=== PATIENT | female | born 1955 | race American Indian/Alaskan Native ===

== ENCOUNTER 2020-12-17 07:40 | Emergency (ER) | payer SELFPAY ==
[2020-12-17 08:14] VITALS: BP 176/96
--- NOTE | 2020-12-17 08:22 | Emergency Department Report ---
Chief Complaint: Extremity Injury, Lower Stated Complaint: LT KNEE AND FOOT PAIN Time Seen by Provider: 12/17/20 08:19 - HPI History of Present Illness: 65 YO AA COMES TO ER 4 DAYS P GLF CO R FOOT AND R KNEE PAIN FULL ROM AND AMBULATORY FALL WITNESSED/MECHANICAL/NO LOC PT HAS TAKEN NO OTC PAIN MEDS; SHE HAS APPLIED ICE. - ROS Review of Systems: NEURO NO COMPLAINTS CV NO COMPLAINTS RESP NO COMPLAINTS GI/ NO COMPLAINTS MUSK: L FOOT AND L KNEE PAIN - Exam Vital Signs: Vital Signs 12/17/20 08:09 Temperature 98.3 F Pulse Rate 66 Respiratory 18 Rate Blood Pressure 176/96 O2 Sat by Pulse 99 Oximetry Physical Exam: ALERT ORIENTED X 4 NO FOCAL DEFICIT FULL ROM L KNEE AND L FOOT/ANKLE DP PLUS 2 NO SWELLING MILD PAIN LEFT KNEE, MEDIAL SURFACE; NO EFFUSION NOTED NO PAIN WITH PALPATION OF KNEE CAP SENSATION INTACT WALKING WITHOUT LIMP S1S2 LUNGS CTA ABD SNT MSE screening note: Focused history and physical exam performed. Due to findings the following was ordered: Patient discussed with doctor:: ELADIO CHAVEZ ED Disposition for MSE Clinical Impression: Contusion, Fall from ground level Disposition: 01 HOME / SELF CARE / HOMELESS Is pt being admited?: No Does the pt Need Aspirin: No Condition: Stable Instructions: Acute Knee Pain, Adult, Foot Contusion, [place], Foot Contusion Additional Instructions: REST ICE ELEVATE ALTERNATE MOTRIN AND TYLENOL FOR PAIN FOLLOW UP WITH PCP AND OR ORTHO MD REFERRALS BELOW MONITOR BLOOD PRESSURE- SLIGHTLY ELEVATED TODAY FOLLOW UP WITH PCP IF PERSISTS Referrals: SILVANA GUZMAN MD [Staff Physician] - 3-5 Days VICKI LAO MD [Staff Physician] - 3-5 Days Forms: Work/School Release Form Time of Disposition: :
== END 2020-12-17 09:09 | disposition home or self-care (01) ==
LOC: ED 07:40
DX: S80.02XA Contusion of left knee, initial encounter (principal); W18.39XA Other fall on same level, initial encounter; Y93.89 Activity, other specified; Y92.89 Other specified places as the place of occurrence of the external cause; Y99.8 Other external cause status
CPT/HCPCS: 99282